=== PATIENT | male | born 1940 | race Caucasian/White ===

== ENCOUNTER 2023-01-15 11:03 | Inpatient (IN) | payer BC ==
[2023-01-15] VITALS (14 sets, daily range): BP systolic 91–133; BP diastolic 53–72; TEMP 97.9–98.6; O2SAT 91–98
[~2023-01-15] VITALS: Ht 167.6 cm; Wt 72.1 kg
[2023-01-15] MEDS ORDERED: IOHEXOL-350 100 ML VIAL IV ONE (11:13)
[2023-01-15] MEDS ORDERED: IV NS 0.9% 250 ML IV ONE (11:14)
[2023-01-15 11:26] LABS: CALCIUM, SERUM 8.2 mg/dL (8.5-10.1); CHLORIDE 105 mmol/L (98-107); CREATININE 0.8 mg/dL (0.6-1.3); GLUCOSE 86 mg/dL (74-106); POTASSIUM 4.5 mmol/L (3.5-5.1); SODIUM SERUM 148 mmol/L (136-145); UREA NITROGEN, BLOOD 29 mg/dL (7-18)
[2023-01-15 11:27] LABS: BASOPHILS # (AUTO) 0.1 K/uL (0.0-0.2); BASOPHILS % (AUTO) 1.8 % (0.0-2.0); EOSINOPHILS # (AUTO) 0.1 K/uL (0.0-0.7); EOSINOPHILS % (AUTO) 2.3 % (0.0-6.0); HEMATOCRIT 30 % (39-51); HEMOGLOBIN 8.2 g/dL (13.5-17.5); LYMPHOCYTES # (AUTO) 1.2 K/uL (0.8-4.8); LYMPHOCYTES % (AUTO) 22.2 % (20.0-44.0); MEAN CORPUSCULAR HEMOGLOBIN 24 PG (26.0-33.0); MEAN CORPUSCULAR HGB CONC 28 g/dl (31.0-36.0); MEAN CORPUSCULAR VOLUME 86 fL (80-96); MONOCYTES # (AUTO) 0.5 K/uL (0.1-1.30); MONOCYTES % (AUTO) 8.6 % (2.0-12.0); NEUTROPHILS # (AUTO) 3.7 K/uL (1.8-8.9); NEUTROPHILS % (AUTO) 65.1 % (43.0-81.0); PLATELET COUNT (AUTO) 179 K/uL (150-450); RED BLOOD CELL COUNT(AUTO) 3.48 MIL/uL (4.5-6.0); RED CELL DISTRIBUTION WIDTH 33.9 % (11.5-15.0); WHITE BLOOD COUNT (AUTO) 5.6 K/uL (4.3-11.0)
[2023-01-15 11:28] LABS: CARBON DIOXIDE 45 mmol/L (21-32)
[2023-01-15] MEDS ORDERED: IV NS 0.9% 1,000 ML BAG IV ONE (11:30)
[2023-01-15] MEDS ORDERED: ACETAMINOPHEN 650 MG/SUPP.RECT RC ONE ×2 (11:30→11:35)
[2023-01-15 11:31] LABS: INR 1.01 (0.91-1.10); PARTIAL THROMBOPLASTIN TIME 24.6 SEC (24.3-34.3); PROTHROMBIN TIME 10.6 SECS (9.2-11.1)
[2023-01-15 11:36] LABS: LACTIC ACID 0.6 mmol/L (0.4-2.0)
[2023-01-15] MEDS ORDERED: THIO300C PO (11:53)
[2023-01-15] MEDS ORDERED: IPRA3AMP22 IH (11:53)
[2023-01-15] MEDS ORDERED: MELA1TAB47 PO (11:53)
[2023-01-15] MEDS ORDERED: CYAN-51 PO (11:53)
[2023-01-15] MEDS ORDERED: FLUD0.1T PO (11:53)
[2023-01-15] MEDS ORDERED: GABA300C PO (11:53)
[2023-01-15] MEDS ORDERED: FERR325T23 PO (11:53)
[2023-01-15] MEDS ORDERED: LISI40TA13 PO (11:53)
[2023-01-15] MEDS ORDERED: CHOL400T58 PO (11:53)
[2023-01-15] MEDS ORDERED: ASPI-1169 PO (11:53)
[2023-01-15] MEDS ORDERED: NA P133E RC (11:53)
[2023-01-15] MEDS ORDERED: BACL5TAB PO (11:53)
[2023-01-15] MEDS ORDERED: LIDO30AD10 TD (11:53)
[2023-01-15] MEDS ORDERED: FURO-145 PO (11:53)
[2023-01-15] MEDS ORDERED: MAGN400O6 PO (11:53)
[2023-01-15] MEDS ORDERED: BISA10SU11 RC (11:53)
[2023-01-15] MEDS ORDERED: ACET-868 PO (11:53)
[2023-01-15] MEDS ORDERED: CALC-494 PO (11:53)
[2023-01-15] MEDS ORDERED: FINA5TAB4 PO (11:53)
[2023-01-15] MEDS ORDERED: MORP15TA PO (11:53)
[2023-01-15] MEDS ORDERED: NITR0.4T48 SL (11:54)
[2023-01-15] MEDS ORDERED: POLY17PO4 PO (11:54)
[2023-01-15] MEDS ORDERED: ONDA-97 PO (11:54)
[2023-01-15 12:08] LABS: ALBUMIN 2.7 g/dL (3.4-5.0); BILIRUBIN,DIRECT 0.2 mg/dL (0.0-0.2); BILIRUBIN,TOTAL 0.5 mg/dL (0.2-1.0); TOTAL PROTEIN, SERUM 6.3 g/dL (6.4-8.2)
[2023-01-15 12:26] LABS: APPEARANCE,URINE CLEAR (CLEAR); BILIRUBIN,URINE NEGATIVE (NEGATIVE); BLOOD, URINE TRACE-INTA Ery/uL (NEGATIVE); COLOR,URINE YELLOW (YELLOW); KETONES,URINE NEGATIVE (NEGATIVE); LEUKOCYTE ESTERASE ,URINE NEGATIVE (NEGATIVE); NITRITE, URINE NEGATIVE (NEGATIVE); PROTEIN,URINE 1+ mg/dl (NEGATIVE); UGLUCOSE NEGATIVE (NEGATIVE)
[2023-01-15] MEDS ORDERED: CEFTRIAXONE 1GM BAG (ER ONLY) 1 GM/50 ML PIGGYBACK IV ONE (12:30)
[2023-01-15] MEDS ORDERED: AZITHROMYCIN 500 MG in IV D5W 250 ML IV ONE (12:30)
[2023-01-15] MEDS ORDERED: CEFTRIAXONE 1GM BAG (ER ONLY) 50 ML IV ONE (12:44)
[2023-01-15 12:48] LABS: ADD URINE CULTURE NO; BACTERIA,URINE None seen /HPF (None Seen); MUCUS,URINE Few /LPF (None Seen); RBC,URINE 0-2 /HPF (0-2); WBC,URINE NONE SEEN /HPF (0-3)
[2023-01-15] MEDS ORDERED: Z GUARD REMEDY 4 OZ OINT TP PRN (13:00)
[2023-01-15 13:01] LABS: LYMPHOCYTES % (MANUAL) 26 % (16-48); MONOCYTES % (MANUAL) 6 % (0-11.0); NEUTROPHILS % (MANUAL) 68 (42-76); PLATELET ESTIMATE ADEQUATE
[2023-01-15 13:02] LABS: ANISOCYTOSIS 1+; HYPOCHROMASIA 2+; OVALOCYTES 1+; STOMATOCYTES 1+
[2023-01-15] MEDS ORDERED: IPRATROPIUM NEB FS 0.5 MG/2.5 ML AMPUL.NEB INH PRN (13:30)
[2023-01-15] MEDS ORDERED: ALBUTEROL FS 2.5 MG/0.5 ML VIAL.NEB NEB PRN (13:30)
[2023-01-15 14:21] LABS: ABG BASE EXCESS 16.9 mmol/L; ABG OXYGEN SATURATION 95.2 % (92.0-98.5); ABG PCO2 86.1 mmHg (35.0-45.0); ABG PH 7.339 (7.350-7.450); ABG PO2 75.8 mmHg (75.0-100.0); ABG TOTAL HEMOGLOBIN 8.8 G/dL (13.5-18.0); COHb 1.5 % (0.5-1.5); MetHb 0.4 % (0.0-1.5); O2Hb 93.4 % (94.0-97.0); SITE, ABG Right Radial
[2023-01-15] MEDS: IPRATROPIUM NEB FS 0.5 MG/2.5 ML AMPUL.NEB NEB SCH ×2 (14:35→19:55)
[2023-01-15] MEDS: ALBUTEROL HALF STRENGTH 1.25 MG/3 ML VIAL.NEB NEB SCH ×4 (14:35→19:55)
[2023-01-15] MEDS ORDERED: VANCOMYCIN 1.5 GM in IV D5W 500ml IV ONE (15:00)
[2023-01-15] MEDS: CEFEPIME 2 GM in IV D5W 100 ML IV SCH ×2 (15:49→22:02)
[2023-01-15] MEDS: FERROUS SULFATE (325 MG) 325 MG/TAB TABLET PO SCH ×2 (15:50→17:00)
[2023-01-15] MEDS: GABAPENTIN 300 MG CAPSULE PO SCH ×2 (15:50→17:00)
[2023-01-15] MEDS: methylPREDNISolone SOD SUCC 125 MG/2ML VIAL IV SCH ×2 (15:50→17:00)
[2023-01-15] MEDS: ENOXAPARIN SODIUM 40 MG/0.4 ML DISP.SYRIN SQ SCH (15:52)
[2023-01-15] MEDS: IV NS 0.9% 1,000 ML IV PRN (17:08)
[2023-01-15] MEDS: FLUDROCORTISONE 0.1 MG TABLET PO SCH (17:37)
[2023-01-15] MEDS: CHOLECALCIFEROL (VITAMIN D 3) 400 UNIT TABLET PO SCH (17:37)
[2023-01-15] MEDS: Z GUARD REMEDY 4 OZ OINT TP SCH (20:55)
[2023-01-16] VITALS (24 sets, daily range): BP systolic 100–146; BP diastolic 60–88; TEMP 97.9–98.4; O2SAT 92–100
[2023-01-16] MEDS: ALBUTEROL HALF STRENGTH 1.25 MG/3 ML VIAL.NEB NEB SCH ×7 (00:13→23:27)
[2023-01-16] MEDS: IPRATROPIUM NEB FS 0.5 MG/2.5 ML AMPUL.NEB NEB SCH ×7 (00:13→23:38)
[2023-01-16] MEDS: VANCOMYCIN HCL 0.75 GM in IV D5W 250 ML IV SCH ×2 (02:29→15:06)
[2023-01-16 04:51] LABS: ALANINE AMINOTRANSFERASE 23 U/L (12-78); ALKALINE PHOSPHATASE 75 U/L (46-116); ASPARTATE AMINOTRANSFERASE 26 U/L (15-37); BILIRUBIN,TOTAL 0.4 mg/dL (0.2-1.0); CALCIUM, SERUM 7.4 mg/dL (8.5-10.1); CARBON DIOXIDE 37 mmol/L (21-32); CHLORIDE 106 mmol/L (98-107); CREATININE 0.7 mg/dL (0.6-1.3); GLUCOSE 126 mg/dL (74-106); MAGNESIUM 2.2 mg/dL (1.8-2.4); PHOSPHORUS 3.1 mg/dL (2.5-4.9); POTASSIUM 4.1 mmol/L (3.5-5.1); SODIUM SERUM 145 mmol/L (136-145); TOTAL PROTEIN, SERUM 5.1 g/dL (6.4-8.2); UREA NITROGEN, BLOOD 27 mg/dL (7-18)
[2023-01-16 05:11] LABS: BASOPHILS # (AUTO) 0.1 K/uL (0.0-0.2); BASOPHILS % (AUTO) 1.4 % (0.0-2.0); EOSINOPHILS % (AUTO) 0.1 % (0.0-6.0); HEMATOCRIT 27 % (39-51); HEMOGLOBIN 7.7 g/dL (13.5-17.5); LYMPHOCYTES # (AUTO) 1.1 K/uL (0.8-4.8); LYMPHOCYTES % (AUTO) 22.2 % (20.0-44.0); MEAN CORPUSCULAR HEMOGLOBIN 24 PG (26.0-33.0); MEAN CORPUSCULAR HGB CONC 28 g/dl (31.0-36.0); MEAN CORPUSCULAR VOLUME 83 fL (80-96); MONOCYTES # (AUTO) 0.3 K/uL (0.1-1.30); MONOCYTES % (AUTO) 5.1 % (2.0-12.0); NEUTROPHILS # (AUTO) 3.6 K/uL (1.8-8.9); NEUTROPHILS % (AUTO) 71.2 % (43.0-81.0); PLATELET COUNT (AUTO) 192 K/uL (150-450); RED BLOOD CELL COUNT(AUTO) 3.27 MIL/uL (4.5-6.0); RED CELL DISTRIBUTION WIDTH 34.2 % (11.5-15.0)
[2023-01-16 05:34] LABS: ABG BASE EXCESS 16.5 mmol/L; ABG OXYGEN SATURATION 91.8 % (92.0-98.5); ABG PCO2 75.8 mmHg (35.0-45.0); ABG PH 7.379 (7.350-7.450); ABG PO2 59.5 mmHg (75.0-100.0); ABG TOTAL HEMOGLOBIN 7.9 G/dL (13.5-18.0); AaDO2 50.7 mmHg; MetHb 0.1 % (0.0-1.5); O2Hb 89.9 % (94.0-97.0); VENT MODE, BG 2LPM N/C
[2023-01-16] MEDS: CEFEPIME 2 GM in IV D5W 100 ML IV SCH ×3 (06:18→21:37)
[2023-01-16] MEDS: IV NS 0.9% 1,000 ML IV PRN (06:24)
[2023-01-16] MEDS: MORPHINE SULFATE INJ 2 MG/ML DISP.SYRIN IV PRN ×2 (08:15→21:45)
[2023-01-16] MEDS: methylPREDNISolone SOD SUCC 125 MG/2ML VIAL IV SCH ×2 (08:29→16:39)
[2023-01-16] MEDS: GABAPENTIN 300 MG CAPSULE PO SCH ×3 (08:30→16:39)
[2023-01-16] MEDS: CHOLECALCIFEROL (VITAMIN D 3) 400 UNIT TABLET PO SCH ×2 (08:30→16:39)
[2023-01-16] MEDS: ASPIRIN 81 MG TAB.CHEW PO SCH (08:30)
[2023-01-16] MEDS: FINASTERIDE (5 MG) 5 MG TABLET PO SCH (08:30)
[2023-01-16] MEDS: FLUDROCORTISONE 0.1 MG TABLET PO SCH ×2 (08:31→16:38)
[2023-01-16] MEDS: LISINOPRIL (20MG) 20 MG TABLET PO SCH (08:31)
[2023-01-16] MEDS: FERROUS SULFATE (325 MG) 325 MG/TAB TABLET PO SCH ×3 (08:31→16:39)
[2023-01-16] MEDS: Z GUARD REMEDY 4 OZ OINT TP SCH ×2 (08:32→21:08)
[2023-01-16] MEDS ORDERED: FUROSEMIDE 20 MG TABLET PO SCH (09:00)
[2023-01-16] MEDS: PROSOURCE / PROSTAT (PYXIS) 30 ML UDC PO SCH ×2 (12:02→16:39)
[2023-01-16] MEDS: ENOXAPARIN SODIUM 40 MG/0.4 ML DISP.SYRIN SQ SCH (12:31)
[2023-01-16] MEDS: FUROSEMIDE 20 MG/2 ML VIAL IV SCH (16:38)
[2023-01-17] VITALS (14 sets, daily range): BP systolic 120–148; BP diastolic 63–87; TEMP 97.6–98.3; O2SAT 94–100
[2023-01-17] MEDS: MORPHINE SULFATE INJ 2 MG/ML DISP.SYRIN IV PRN ×3 (02:41→22:27)
[2023-01-17] MEDS: VANCOMYCIN HCL 0.75 GM in IV D5W 250 ML IV SCH ×2 (02:49→15:06)
[2023-01-17] MEDS: IPRATROPIUM NEB FS 0.5 MG/2.5 ML AMPUL.NEB NEB SCH ×5 (03:30→20:08)
[2023-01-17] MEDS: ALBUTEROL HALF STRENGTH 1.25 MG/3 ML VIAL.NEB NEB SCH ×5 (03:30→20:08)
[2023-01-17] MEDS: CEFEPIME 2 GM in IV D5W 100 ML IV SCH ×3 (05:39→21:39)
[2023-01-17 08:29] LABS: ABG BASE EXCESS 14.7 mmol/L; ABG OXYGEN SATURATION 89.5 % (92.0-98.5); ABG PCO2 65.1 mmHg (35.0-45.0); ABG PH 7.419 (7.350-7.450); ABG PO2 53.6 mmHg (75.0-100.0); AaDO2 69.2 mmHg; COHb 2.1 % (0.5-1.5); MetHb 0.1 % (0.0-1.5); O2Hb 87.5 % (94.0-97.0); SITE, ABG Right Radial; VENT MODE, BG nasal cannula
[2023-01-17 08:51] LABS: ALANINE AMINOTRANSFERASE 27 U/L (12-78); ALBUMIN 2.5 g/dL (3.4-5.0); ALKALINE PHOSPHATASE 78 U/L (46-116); ASPARTATE AMINOTRANSFERASE 23 U/L (15-37); BILIRUBIN,TOTAL 0.4 mg/dL (0.2-1.0); CALCIUM, SERUM 8.1 mg/dL (8.5-10.1); CARBON DIOXIDE 37 mmol/L (21-32); CHLORIDE 104 mmol/L (98-107); GLUCOSE 110 mg/dL (74-106); POTASSIUM 4.1 mmol/L (3.5-5.1); SODIUM SERUM 144 mmol/L (136-145); TOTAL PROTEIN, SERUM 5.9 g/dL (6.4-8.2); UREA NITROGEN, BLOOD 33 mg/dL (7-18)
[2023-01-17 09:10] LABS: BASOPHILS # (AUTO) 0.1 K/uL (0.0-0.2); BASOPHILS % (AUTO) 0.8 % (0.0-2.0); EOSINOPHILS % (AUTO) 0.4 % (0.0-6.0); HEMATOCRIT 27 % (39-51); HEMOGLOBIN 7.7 g/dL (13.5-17.5); LYMPHOCYTES # (AUTO) 1.2 K/uL (0.8-4.8); LYMPHOCYTES % (AUTO) 19.8 % (20.0-44.0); MEAN CORPUSCULAR HEMOGLOBIN 23 PG (26.0-33.0); MEAN CORPUSCULAR HGB CONC 29 g/dl (31.0-36.0); MEAN CORPUSCULAR VOLUME 82 fL (80-96); MONOCYTES # (AUTO) 0.4 K/uL (0.1-1.30); MONOCYTES % (AUTO) 6.1 % (2.0-12.0); NEUTROPHILS # (AUTO) 4.6 K/uL (1.8-8.9); NEUTROPHILS % (AUTO) 72.9 % (43.0-81.0); PLATELET COUNT (AUTO) 209 K/uL (150-450); RED BLOOD CELL COUNT(AUTO) 3.27 MIL/uL (4.5-6.0); RED CELL DISTRIBUTION WIDTH 33.8 % (11.5-15.0); WHITE BLOOD COUNT (AUTO) 6.3 K/uL (4.3-11.0)
[2023-01-17] MEDS: FLUDROCORTISONE 0.1 MG TABLET PO SCH ×2 (10:13→17:05)
[2023-01-17] MEDS: PROSOURCE / PROSTAT (PYXIS) 30 ML UDC PO SCH ×3 (10:13→17:06)
[2023-01-17] MEDS: FUROSEMIDE 20 MG/2 ML VIAL IV SCH ×2 (10:13→17:05)
[2023-01-17] MEDS: CHOLECALCIFEROL (VITAMIN D 3) 400 UNIT TABLET PO SCH ×2 (10:14→17:05)
[2023-01-17] MEDS: GABAPENTIN 300 MG CAPSULE PO SCH ×3 (10:14→17:05)
[2023-01-17] MEDS: FERROUS SULFATE (325 MG) 325 MG/TAB TABLET PO SCH ×3 (10:14→17:05)
[2023-01-17] MEDS: ASPIRIN 81 MG TAB.CHEW PO SCH (10:14)
[2023-01-17] MEDS: FINASTERIDE (5 MG) 5 MG TABLET PO SCH (10:14)
[2023-01-17] MEDS: Z GUARD REMEDY 4 OZ OINT TP SCH ×2 (10:17→21:21)
[2023-01-17] MEDS: methylPREDNISolone SOD SUCC 125 MG/2ML VIAL IV SCH (10:17)
[2023-01-17] MEDS: LISINOPRIL (20MG) 20 MG TABLET PO SCH (10:18)
[2023-01-17] MEDS: ENOXAPARIN SODIUM 40 MG/0.4 ML DISP.SYRIN SQ SCH (13:15)
[2023-01-18] VITALS (14 sets, daily range): BP systolic 120–151; BP diastolic 65–106; TEMP 97.3–98.6; O2SAT 93–99
[2023-01-18] MEDS: IPRATROPIUM NEB FS 0.5 MG/2.5 ML AMPUL.NEB NEB SCH ×6 (00:48→20:26)
[2023-01-18] MEDS: ALBUTEROL HALF STRENGTH 1.25 MG/3 ML VIAL.NEB NEB SCH ×6 (00:48→20:26)
[2023-01-18] MEDS: VANCOMYCIN HCL 0.75 GM in IV D5W 250 ML IV SCH (03:28)
[2023-01-18] MEDS: CEFEPIME 2 GM in IV D5W 100 ML IV SCH (05:32)
[2023-01-18 06:43] LABS: BASOPHILS # (AUTO) 0.1 K/uL (0.0-0.2); BASOPHILS % (AUTO) 0.9 % (0.0-2.0); EOSINOPHILS % (AUTO) 0.5 % (0.0-6.0); HEMATOCRIT 28 % (39-51); HEMOGLOBIN 8.1 g/dL (13.5-17.5); LYMPHOCYTES # (AUTO) 1.6 K/uL (0.8-4.8); LYMPHOCYTES % (AUTO) 23.6 % (20.0-44.0); MEAN CORPUSCULAR HEMOGLOBIN 24 PG (26.0-33.0); MEAN CORPUSCULAR HGB CONC 29 g/dl (31.0-36.0); MEAN CORPUSCULAR VOLUME 82 fL (80-96); MONOCYTES # (AUTO) 0.4 K/uL (0.1-1.30); MONOCYTES % (AUTO) 6.3 % (2.0-12.0); NEUTROPHILS # (AUTO) 4.6 K/uL (1.8-8.9); NEUTROPHILS % (AUTO) 68.7 % (43.0-81.0); PLATELET COUNT (AUTO) 208 K/uL (150-450); RED BLOOD CELL COUNT(AUTO) 3.39 MIL/uL (4.5-6.0); RED CELL DISTRIBUTION WIDTH 33.9 % (11.5-15.0); WHITE BLOOD COUNT (AUTO) 6.7 K/uL (4.3-11.0)
[2023-01-18 07:14] LABS: CALCIUM, SERUM 7.8 mg/dL (8.5-10.1); CHLORIDE 101 mmol/L (98-107); CREATININE 0.9 mg/dL (0.6-1.3); GLUCOSE 86 mg/dL (74-106); POTASSIUM 3.4 mmol/L (3.5-5.1); SODIUM SERUM 144 mmol/L (136-145); UREA NITROGEN, BLOOD 34 mg/dL (7-18)
[2023-01-18 07:21] LABS: CARBON DIOXIDE 40 mmol/L (21-32)
[2023-01-18] MEDS: methylPREDNISolone SOD SUCC 40 MG/ML VIAL IV SCH (08:33)
[2023-01-18] MEDS: POLYETHYLENE GLYCOL 3350 17 GM POWD.PACK PO SCH ×2 (08:33→09:55)
[2023-01-18] MEDS: FERROUS SULFATE (325 MG) 325 MG/TAB TABLET PO SCH ×3 (08:33→17:38)
[2023-01-18] MEDS: LACTULOSE 10 G/15 ML UDC (PYXIS) PO SCH ×2 (08:33→17:38)
[2023-01-18] MEDS: CHOLECALCIFEROL (VITAMIN D 3) 400 UNIT TABLET PO SCH ×2 (08:34→17:38)
[2023-01-18] MEDS: FUROSEMIDE 20 MG/2 ML VIAL IV SCH ×3 (08:34→08:39)
[2023-01-18] MEDS: ASPIRIN 81 MG TAB.CHEW PO SCH (08:34)
[2023-01-18] MEDS: FINASTERIDE (5 MG) 5 MG TABLET PO SCH (08:34)
[2023-01-18] MEDS: GABAPENTIN 300 MG CAPSULE PO SCH ×3 (08:35→17:37)
[2023-01-18] MEDS: LISINOPRIL (20MG) 20 MG TABLET PO SCH (08:35)
[2023-01-18] MEDS: FLUDROCORTISONE 0.1 MG TABLET PO SCH ×2 (08:35→17:38)
[2023-01-18] MEDS: DOCUSATE SODIUM 100 MG CAPSULE PO SCH ×2 (08:40→17:38)
[2023-01-18] MEDS: PROSOURCE / PROSTAT (PYXIS) 30 ML UDC PO SCH ×3 (08:41→17:39)
[2023-01-18] MEDS: Z GUARD REMEDY 4 OZ OINT TP SCH ×2 (09:01→20:11)
[2023-01-18] MEDS: ONDANSETRON HCL/PF 4 MG/2 ML VIAL IVP PRN (09:57)
[2023-01-18] MEDS: ENOXAPARIN SODIUM 40 MG/0.4 ML DISP.SYRIN SQ SCH (12:09)
[2023-01-18] MEDS ORDERED: POTASSIUM CHLORIDE 20 MEQ TAB.PRT.SR PO ONE (12:30)
[2023-01-18] MEDS: MORPHINE SULFATE INJ 2 MG/ML DISP.SYRIN IV PRN ×2 (14:41→20:03)
[2023-01-18 17:24] LABS: HEMOGLOBIN 8.3 g/dL (13.5-17.5)
[2023-01-18] MEDS: FUROSEMIDE 20 MG TABLET PO SCH (17:39)
[2023-01-19] VITALS (14 sets, daily range): BP systolic 112–144; BP diastolic 61–80; TEMP 97.8–98.6; O2SAT 11–100
[2023-01-19] MEDS: IPRATROPIUM NEB FS 0.5 MG/2.5 ML AMPUL.NEB NEB SCH ×6 (00:53→20:14)
[2023-01-19] MEDS: ALBUTEROL HALF STRENGTH 1.25 MG/3 ML VIAL.NEB NEB SCH ×6 (00:53→20:14)
[2023-01-19] MEDS: ACETAMINOPHEN 325 MG TABLET PO PRN (00:58)
[2023-01-19 05:49] LABS: BASOPHILS # (AUTO) 0.1 K/uL (0.0-0.2); BASOPHILS % (AUTO) 0.8 % (0.0-2.0); EOSINOPHILS % (AUTO) 0.3 % (0.0-6.0); HEMATOCRIT 27 % (39-51); HEMOGLOBIN 7.8 g/dL (13.5-17.5); LYMPHOCYTES # (AUTO) 1.7 K/uL (0.8-4.8); LYMPHOCYTES % (AUTO) 26.3 % (20.0-44.0); MEAN CORPUSCULAR HEMOGLOBIN 24 PG (26.0-33.0); MEAN CORPUSCULAR HGB CONC 29 g/dl (31.0-36.0); MEAN CORPUSCULAR VOLUME 81 fL (80-96); MONOCYTES # (AUTO) 0.4 K/uL (0.1-1.30); MONOCYTES % (AUTO) 5.6 % (2.0-12.0); NEUTROPHILS # (AUTO) 4.2 K/uL (1.8-8.9); PLATELET COUNT (AUTO) 210 K/uL (150-450); RED BLOOD CELL COUNT(AUTO) 3.31 MIL/uL (4.5-6.0); RED CELL DISTRIBUTION WIDTH 33.7 % (11.5-15.0); WHITE BLOOD COUNT (AUTO) 6.3 K/uL (4.3-11.0)
[2023-01-19 06:03] LABS: CALCIUM, SERUM 8.1 mg/dL (8.5-10.1); CREATININE 0.9 mg/dL (0.6-1.3); POTASSIUM 3.6 mmol/L (3.5-5.1)
[2023-01-19] MEDS: DOCUSATE SODIUM 100 MG CAPSULE PO SCH ×2 (09:00→17:07)
[2023-01-19] MEDS: POLYETHYLENE GLYCOL 3350 17 GM POWD.PACK PO SCH (09:00)
[2023-01-19] MEDS: methylPREDNISolone SOD SUCC 40 MG/ML VIAL IV SCH (09:21)
[2023-01-19] MEDS: FERROUS SULFATE (325 MG) 325 MG/TAB TABLET PO SCH ×3 (09:22→17:07)
[2023-01-19] MEDS: FUROSEMIDE 20 MG TABLET PO SCH (09:22)
[2023-01-19] MEDS: FLUDROCORTISONE 0.1 MG TABLET PO SCH ×2 (09:22→17:08)
[2023-01-19] MEDS: FINASTERIDE (5 MG) 5 MG TABLET PO SCH (09:22)
[2023-01-19] MEDS: CHOLECALCIFEROL (VITAMIN D 3) 400 UNIT TABLET PO SCH ×2 (09:22→17:05)
[2023-01-19] MEDS: ASPIRIN 81 MG TAB.CHEW PO SCH (09:22)
[2023-01-19] MEDS: LISINOPRIL (20MG) 20 MG TABLET PO SCH (09:23)
[2023-01-19] MEDS: PROSOURCE / PROSTAT (PYXIS) 30 ML UDC PO SCH ×3 (09:24→17:00)
[2023-01-19] MEDS: Z GUARD REMEDY 4 OZ OINT TP SCH ×2 (09:25→20:29)
[2023-01-19] MEDS: GABAPENTIN 300 MG CAPSULE PO SCH ×3 (09:37→17:04)
[2023-01-19] MEDS: MORPHINE SULFATE INJ 2 MG/ML DISP.SYRIN IV PRN (10:05)
[2023-01-19] MEDS ORDERED: PRED50TA PO (10:46)
[2023-01-19] MEDS ORDERED: FURO20TA4 PO (10:46)
[2023-01-19] MEDS: ENOXAPARIN SODIUM 40 MG/0.4 ML DISP.SYRIN SQ SCH (14:34)
[2023-01-20] VITALS (15 sets, daily range): BP systolic 118–153; BP diastolic 64–75; TEMP 97.5–98.8; O2SAT 93–99
[2023-01-20] MEDS: ALBUTEROL HALF STRENGTH 1.25 MG/3 ML VIAL.NEB NEB SCH ×7 (00:07→23:40)
[2023-01-20] MEDS: IPRATROPIUM NEB FS 0.5 MG/2.5 ML AMPUL.NEB NEB SCH ×7 (00:07→23:40)
[2023-01-20] MEDS: MORPHINE SULFATE INJ 2 MG/ML DISP.SYRIN IV PRN ×2 (03:42→22:42)
[2023-01-20] MEDS ORDERED: IV NS 0.9% 500 ML IV ONE (04:57)
[2023-01-20 07:26] LABS: BASOPHILS # (AUTO) 0.1 K/uL (0.0-0.2); EOSINOPHILS % (AUTO) 0.7 % (0.0-6.0); HEMATOCRIT 27 % (39-51); HEMOGLOBIN 7.8 g/dL (13.5-17.5); LYMPHOCYTES # (AUTO) 1.7 K/uL (0.8-4.8); LYMPHOCYTES % (AUTO) 24.4 % (20.0-44.0); MEAN CORPUSCULAR HEMOGLOBIN 24 PG (26.0-33.0); MEAN CORPUSCULAR HGB CONC 29 g/dl (31.0-36.0); MEAN CORPUSCULAR VOLUME 83 fL (80-96); MONOCYTES # (AUTO) 0.4 K/uL (0.1-1.30); MONOCYTES % (AUTO) 5.4 % (2.0-12.0); NEUTROPHILS # (AUTO) 4.7 K/uL (1.8-8.9); NEUTROPHILS % (AUTO) 68.5 % (43.0-81.0); PLATELET COUNT (AUTO) 207 K/uL (150-450); RED BLOOD CELL COUNT(AUTO) 3.29 MIL/uL (4.5-6.0); RED CELL DISTRIBUTION WIDTH 34.3 % (11.5-15.0); WHITE BLOOD COUNT (AUTO) 6.8 K/uL (4.3-11.0)
[2023-01-20 07:45] LABS: CREATININE 0.9 mg/dL (0.6-1.3); POTASSIUM 3.5 mmol/L (3.5-5.1)
[2023-01-20] MEDS: methylPREDNISolone SOD SUCC 40 MG/ML VIAL IV SCH (09:26)
[2023-01-20] MEDS: FERROUS SULFATE (325 MG) 325 MG/TAB TABLET PO SCH ×3 (09:26→16:17)
[2023-01-20] MEDS: FINASTERIDE (5 MG) 5 MG TABLET PO SCH (09:27)
[2023-01-20] MEDS: POLYETHYLENE GLYCOL 3350 17 GM POWD.PACK PO SCH (09:27)
[2023-01-20] MEDS: GABAPENTIN 300 MG CAPSULE PO SCH ×3 (09:27→16:17)
[2023-01-20] MEDS: FLUDROCORTISONE 0.1 MG TABLET PO SCH ×2 (09:27→16:17)
[2023-01-20] MEDS: ASPIRIN 81 MG TAB.CHEW PO SCH (09:27)
[2023-01-20] MEDS: CHOLECALCIFEROL (VITAMIN D 3) 400 UNIT TABLET PO SCH ×2 (09:27→16:16)
[2023-01-20] MEDS: LISINOPRIL (20MG) 20 MG TABLET PO SCH (09:28)
[2023-01-20] MEDS: DOCUSATE SODIUM 100 MG CAPSULE PO SCH ×2 (09:29→16:17)
[2023-01-20] MEDS: PROSOURCE / PROSTAT (PYXIS) 30 ML UDC PO SCH ×3 (09:29→16:19)
[2023-01-20] MEDS: Z GUARD REMEDY 4 OZ OINT TP SCH ×2 (09:43→21:15)
[2023-01-20] MEDS: ENOXAPARIN SODIUM 40 MG/0.4 ML DISP.SYRIN SQ SCH (13:44)
[2023-01-21] VITALS (12 sets, daily range): BP systolic 121–143; BP diastolic 73–87; TEMP 97.6–99.1; O2SAT 95–100
[2023-01-21] MEDS: ALBUTEROL HALF STRENGTH 1.25 MG/3 ML VIAL.NEB NEB SCH ×5 (04:15→20:27)
[2023-01-21] MEDS: IPRATROPIUM NEB FS 0.5 MG/2.5 ML AMPUL.NEB NEB SCH ×5 (04:15→20:27)
[2023-01-21 06:50] LABS: BASOPHILS # (AUTO) 0.1 K/uL (0.0-0.2); EOSINOPHILS # (AUTO) 0.1 K/uL (0.0-0.7); EOSINOPHILS % (AUTO) 1.7 % (0.0-6.0); HEMATOCRIT 28 % (39-51); HEMOGLOBIN 8.2 g/dL (13.5-17.5); LYMPHOCYTES # (AUTO) 1.5 K/uL (0.8-4.8); LYMPHOCYTES % (AUTO) 22.9 % (20.0-44.0); MEAN CORPUSCULAR HEMOGLOBIN 24 PG (26.0-33.0); MEAN CORPUSCULAR HGB CONC 29 g/dl (31.0-36.0); MEAN CORPUSCULAR VOLUME 82 fL (80-96); MONOCYTES # (AUTO) 0.3 K/uL (0.1-1.30); MONOCYTES % (AUTO) 4.6 % (2.0-12.0); NEUTROPHILS # (AUTO) 4.7 K/uL (1.8-8.9); NEUTROPHILS % (AUTO) 69.8 % (43.0-81.0); PLATELET COUNT (AUTO) 204 K/uL (150-450); RED BLOOD CELL COUNT(AUTO) 3.45 MIL/uL (4.5-6.0); RED CELL DISTRIBUTION WIDTH 34.3 % (11.5-15.0); WHITE BLOOD COUNT (AUTO) 6.7 K/uL (4.3-11.0)
[2023-01-21 07:05] LABS: CALCIUM, SERUM 8.2 mg/dL (8.5-10.1); CHLORIDE 105 mmol/L (98-107); CREATININE 0.8 mg/dL (0.6-1.3); GLUCOSE 102 mg/dL (74-106); POTASSIUM 3.5 mmol/L (3.5-5.1); SODIUM SERUM 147 mmol/L (136-145); UREA NITROGEN, BLOOD 33 mg/dL (7-18)
[2023-01-21 07:08] LABS: CARBON DIOXIDE 42 mmol/L (21-32)
[2023-01-21] MEDS: FERROUS SULFATE (325 MG) 325 MG/TAB TABLET PO SCH ×3 (08:23→17:39)
[2023-01-21] MEDS: POLYETHYLENE GLYCOL 3350 17 GM POWD.PACK PO SCH (08:24)
[2023-01-21] MEDS: ASPIRIN 81 MG TAB.CHEW PO SCH (08:24)
[2023-01-21] MEDS: FINASTERIDE (5 MG) 5 MG TABLET PO SCH (08:25)
[2023-01-21] MEDS: DOCUSATE SODIUM 100 MG CAPSULE PO SCH ×2 (08:25→17:39)
[2023-01-21] MEDS: methylPREDNISolone SOD SUCC 40 MG/ML VIAL IV SCH (08:25)
[2023-01-21] MEDS: CHOLECALCIFEROL (VITAMIN D 3) 400 UNIT TABLET PO SCH ×2 (08:25→17:39)
[2023-01-21] MEDS: GABAPENTIN 300 MG CAPSULE PO SCH ×3 (08:25→17:39)
[2023-01-21] MEDS: FLUDROCORTISONE 0.1 MG TABLET PO SCH ×2 (08:25→17:39)
[2023-01-21] MEDS: MORPHINE SULFATE INJ 2 MG/ML DISP.SYRIN IV PRN ×2 (08:26→21:11)
[2023-01-21] MEDS: LISINOPRIL (20MG) 20 MG TABLET PO SCH (08:27)
[2023-01-21] MEDS: Z GUARD REMEDY 4 OZ OINT TP SCH ×2 (09:19→22:17)
[2023-01-21] MEDS: PROSOURCE / PROSTAT (PYXIS) 30 ML UDC PO SCH ×3 (09:19→17:39)
[2023-01-21] MEDS: ENOXAPARIN SODIUM 40 MG/0.4 ML DISP.SYRIN SQ SCH (13:05)
[2023-01-22] VITALS (12 sets, daily range): BP systolic 133–146; BP diastolic 64–89; TEMP 97.2–98.8; O2SAT 94–100
[2023-01-22] MEDS: ALBUTEROL HALF STRENGTH 1.25 MG/3 ML VIAL.NEB NEB SCH ×7 (00:17→23:10)
[2023-01-22] MEDS: IPRATROPIUM NEB FS 0.5 MG/2.5 ML AMPUL.NEB NEB SCH ×7 (00:17→23:10)
[2023-01-22] MEDS: MORPHINE SULFATE INJ 2 MG/ML DISP.SYRIN IV PRN (03:44)
[2023-01-22 05:46] LABS: BASOPHILS % (AUTO) 0.6 % (0.0-2.0); EOSINOPHILS # (AUTO) 0.1 K/uL (0.0-0.7); EOSINOPHILS % (AUTO) 1.6 % (0.0-6.0); HEMATOCRIT 28 % (39-51); LYMPHOCYTES # (AUTO) 1.6 K/uL (0.8-4.8); LYMPHOCYTES % (AUTO) 21.9 % (20.0-44.0); MEAN CORPUSCULAR HEMOGLOBIN 24 PG (26.0-33.0); MEAN CORPUSCULAR HGB CONC 29 g/dl (31.0-36.0); MEAN CORPUSCULAR VOLUME 82 fL (80-96); MONOCYTES # (AUTO) 0.4 K/uL (0.1-1.30); MONOCYTES % (AUTO) 5.1 % (2.0-12.0); NEUTROPHILS # (AUTO) 5.2 K/uL (1.8-8.9); NEUTROPHILS % (AUTO) 70.8 % (43.0-81.0); PLATELET COUNT (AUTO) 183 K/uL (150-450); RED BLOOD CELL COUNT(AUTO) 3.39 MIL/uL (4.5-6.0); RED CELL DISTRIBUTION WIDTH 34.1 % (11.5-15.0); WHITE BLOOD COUNT (AUTO) 7.3 K/uL (4.3-11.0)
[2023-01-22 05:57] LABS: CALCIUM, SERUM 8.1 mg/dL (8.5-10.1); CREATININE 0.9 mg/dL (0.6-1.3); POTASSIUM 4.1 mmol/L (3.5-5.1)
[2023-01-22] MEDS: POLYETHYLENE GLYCOL 3350 17 GM POWD.PACK PO SCH (08:44)
[2023-01-22] MEDS: CHOLECALCIFEROL (VITAMIN D 3) 400 UNIT TABLET PO SCH ×2 (08:46→16:10)
[2023-01-22] MEDS: ASPIRIN 81 MG TAB.CHEW PO SCH (08:46)
[2023-01-22] MEDS: DOCUSATE SODIUM 100 MG CAPSULE PO SCH ×2 (08:46→16:12)
[2023-01-22] MEDS: GABAPENTIN 300 MG CAPSULE PO SCH ×3 (08:46→16:10)
[2023-01-22] MEDS: methylPREDNISolone SOD SUCC 40 MG/ML VIAL IV SCH (08:46)
[2023-01-22] MEDS: LISINOPRIL (20MG) 20 MG TABLET PO SCH (08:47)
[2023-01-22] MEDS: FERROUS SULFATE (325 MG) 325 MG/TAB TABLET PO SCH ×3 (08:47→16:09)
[2023-01-22] MEDS: PROSOURCE / PROSTAT (PYXIS) 30 ML UDC PO SCH ×3 (08:48→16:09)
[2023-01-22] MEDS: FINASTERIDE (5 MG) 5 MG TABLET PO SCH (08:49)
[2023-01-22] MEDS: FLUDROCORTISONE 0.1 MG TABLET PO SCH ×2 (09:23→16:09)
[2023-01-22] MEDS: Z GUARD REMEDY 4 OZ OINT TP SCH ×2 (09:24→20:22)
[2023-01-23] VITALS (12 sets, daily range): BP systolic 115–148; BP diastolic 55–88; TEMP 97.4–98.4; O2SAT 92–100
[2023-01-23] MEDS: IPRATROPIUM NEB FS 0.5 MG/2.5 ML AMPUL.NEB NEB SCH ×6 (04:31→22:57)
[2023-01-23] MEDS: ALBUTEROL HALF STRENGTH 1.25 MG/3 ML VIAL.NEB NEB SCH ×6 (04:31→22:57)
[2023-01-23 05:44] LABS: BASOPHILS # (AUTO) 0.1 K/uL (0.0-0.2); BASOPHILS % (AUTO) 0.7 % (0.0-2.0); EOSINOPHILS # (AUTO) 0.2 K/uL (0.0-0.7); HEMATOCRIT 31 % (39-51); HEMOGLOBIN 8.6 g/dL (13.5-17.5); LYMPHOCYTES # (AUTO) 2.1 K/uL (0.8-4.8); LYMPHOCYTES % (AUTO) 25.4 % (20.0-44.0); MEAN CORPUSCULAR HEMOGLOBIN 24 PG (26.0-33.0); MEAN CORPUSCULAR HGB CONC 28 g/dl (31.0-36.0); MEAN CORPUSCULAR VOLUME 84 fL (80-96); MONOCYTES # (AUTO) 0.3 K/uL (0.1-1.30); MONOCYTES % (AUTO) 3.9 % (2.0-12.0); NEUTROPHILS # (AUTO) 5.7 K/uL (1.8-8.9); PLATELET COUNT (AUTO) 196 K/uL (150-450); RED BLOOD CELL COUNT(AUTO) 3.68 MIL/uL (4.5-6.0); RED CELL DISTRIBUTION WIDTH 33.7 % (11.5-15.0); WHITE BLOOD COUNT (AUTO) 8.4 K/uL (4.3-11.0)
[2023-01-23 06:03] LABS: CALCIUM, SERUM 8.1 mg/dL (8.5-10.1); CREATININE 0.7 mg/dL (0.6-1.3); MAGNESIUM 2.6 mg/dL (1.8-2.4); PHOSPHORUS 4.9 mg/dL (2.5-4.9); POTASSIUM 4.4 mmol/L (3.5-5.1)
[2023-01-23] MEDS: MORPHINE SULFATE INJ 2 MG/ML DISP.SYRIN IV PRN ×3 (06:54→20:17)
[2023-01-23] MEDS: POLYETHYLENE GLYCOL 3350 17 GM POWD.PACK PO SCH (08:46)
[2023-01-23] MEDS: PROSOURCE / PROSTAT (PYXIS) 30 ML UDC PO SCH ×3 (08:46→17:59)
[2023-01-23] MEDS: FINASTERIDE (5 MG) 5 MG TABLET PO SCH (08:47)
[2023-01-23] MEDS: CHOLECALCIFEROL (VITAMIN D 3) 400 UNIT TABLET PO SCH ×2 (08:47→17:59)
[2023-01-23] MEDS: ASPIRIN 81 MG TAB.CHEW PO SCH (08:47)
[2023-01-23] MEDS: FERROUS SULFATE (325 MG) 325 MG/TAB TABLET PO SCH ×3 (08:48→17:59)
[2023-01-23] MEDS: predniSONE 20 MG TABLET PO SCH (08:48)
[2023-01-23] MEDS: FLUDROCORTISONE 0.1 MG TABLET PO SCH ×2 (08:48→17:58)
[2023-01-23] MEDS: GABAPENTIN 300 MG CAPSULE PO SCH ×3 (08:48→17:59)
[2023-01-23] MEDS: LISINOPRIL (20MG) 20 MG TABLET PO SCH (08:48)
[2023-01-23] MEDS: DOCUSATE SODIUM 100 MG CAPSULE PO SCH ×2 (08:48→17:59)
[2023-01-23] MEDS: Z GUARD REMEDY 4 OZ OINT TP SCH ×2 (08:49→21:23)
[2023-01-24] VITALS (14 sets, daily range): BP systolic 132–153; BP diastolic 63–83; TEMP 97.7–98.8; O2SAT 94–100
[2023-01-24] MEDS: IPRATROPIUM NEB FS 0.5 MG/2.5 ML AMPUL.NEB NEB SCH ×6 (02:40→23:45)
[2023-01-24] MEDS: ALBUTEROL HALF STRENGTH 1.25 MG/3 ML VIAL.NEB NEB SCH ×6 (02:40→23:45)
[2023-01-24 07:07] LABS: BASOPHILS # (AUTO) 0.1 K/uL (0.0-0.2); BASOPHILS % (AUTO) 1.3 % (0.0-2.0); EOSINOPHILS # (AUTO) 0.3 K/uL (0.0-0.7); EOSINOPHILS % (AUTO) 4.4 % (0.0-6.0); HEMATOCRIT 28 % (39-51); LYMPHOCYTES # (AUTO) 1.4 K/uL (0.8-4.8); LYMPHOCYTES % (AUTO) 18.9 % (20.0-44.0); MEAN CORPUSCULAR HEMOGLOBIN 24 PG (26.0-33.0); MEAN CORPUSCULAR HGB CONC 29 g/dl (31.0-36.0); MEAN CORPUSCULAR VOLUME 83 fL (80-96); MONOCYTES # (AUTO) 0.4 K/uL (0.1-1.30); MONOCYTES % (AUTO) 4.9 % (2.0-12.0); NEUTROPHILS # (AUTO) 5.1 K/uL (1.8-8.9); NEUTROPHILS % (AUTO) 70.5 % (43.0-81.0); PLATELET COUNT (AUTO) 187 K/uL (150-450); RED BLOOD CELL COUNT(AUTO) 3.38 MIL/uL (4.5-6.0); RED CELL DISTRIBUTION WIDTH 34.5 % (11.5-15.0); WHITE BLOOD COUNT (AUTO) 7.2 K/uL (4.3-11.0)
[2023-01-24 07:09] LABS: CREATININE 0.6 mg/dL (0.6-1.3); MAGNESIUM 2.4 mg/dL (1.8-2.4); PHOSPHORUS 4.4 mg/dL (2.5-4.9); POTASSIUM 4.2 mmol/L (3.5-5.1)
[2023-01-24] MEDS: Z GUARD REMEDY 4 OZ OINT TP SCH ×2 (08:19→20:40)
[2023-01-24] MEDS: FINASTERIDE (5 MG) 5 MG TABLET PO SCH (08:30)
[2023-01-24] MEDS: FERROUS SULFATE (325 MG) 325 MG/TAB TABLET PO SCH ×3 (08:31→16:12)
[2023-01-24] MEDS: FLUDROCORTISONE 0.1 MG TABLET PO SCH ×2 (08:31→16:12)
[2023-01-24] MEDS: POLYETHYLENE GLYCOL 3350 17 GM POWD.PACK PO SCH (08:31)
[2023-01-24] MEDS: predniSONE 20 MG TABLET PO SCH (08:31)
[2023-01-24] MEDS: ASPIRIN 81 MG TAB.CHEW PO SCH (08:31)
[2023-01-24] MEDS: CHOLECALCIFEROL (VITAMIN D 3) 400 UNIT TABLET PO SCH ×2 (08:31→16:12)
[2023-01-24] MEDS: DOCUSATE SODIUM 100 MG CAPSULE PO SCH ×2 (08:31→16:12)
[2023-01-24] MEDS: GABAPENTIN 300 MG CAPSULE PO SCH ×3 (08:31→16:12)
[2023-01-24] MEDS: LISINOPRIL (20MG) 20 MG TABLET PO SCH (08:32)
[2023-01-24] MEDS: PROSOURCE / PROSTAT (PYXIS) 30 ML UDC PO SCH ×3 (08:32→16:12)
[2023-01-24] MEDS: MORPHINE SULFATE INJ 2 MG/ML DISP.SYRIN IV PRN ×2 (10:12→21:37)
[2023-01-24 17:15] LABS: APPEARANCE,URINE SLIGHTLY CLOUDY (CLEAR); BILIRUBIN,URINE 1+ (NEGATIVE); BLOOD, URINE 3+ Ery/uL (NEGATIVE); COLOR,URINE RED (YELLOW); KETONES,URINE NEGATIVE (NEGATIVE); LEUKOCYTE ESTERASE ,URINE NEGATIVE (NEGATIVE); NITRITE, URINE NEGATIVE (NEGATIVE); PROTEIN,URINE 2+ mg/dl (NEGATIVE); UGLUCOSE NEGATIVE (NEGATIVE); UROBILINOGEN,URINE >=8.0 EU/dL (0.2)
[2023-01-24 17:28] LABS: RBC,URINE 51-80 /HPF (0-2)
[2023-01-24 17:29] LABS: ADD URINE CULTURE NO; BACTERIA,URINE None seen /HPF (None Seen); CALCIUM OXALATE CRYSTALS,UR Few /HPF (None Seen); SQUAMOUS EPITHELIAL CELL,UR None Seen /HPF (None Seen)
[2023-01-24 17:30] LABS: MUCUS,URINE Few /LPF (None Seen)
[2023-01-25] VITALS (14 sets, daily range): BP systolic 124–149; BP diastolic 72–86; TEMP 97.5–98.6; O2SAT 92–98
[2023-01-25] MEDS: ONDANSETRON HCL/PF 4 MG/2 ML VIAL IVP PRN (01:05)
[2023-01-25] MEDS: ALBUTEROL HALF STRENGTH 1.25 MG/3 ML VIAL.NEB NEB SCH ×5 (03:31→20:42)
[2023-01-25] MEDS: IPRATROPIUM NEB FS 0.5 MG/2.5 ML AMPUL.NEB NEB SCH ×5 (03:31→20:43)
[2023-01-25 07:39] LABS: BASOPHILS # (AUTO) 0.1 K/uL (0.0-0.2); BASOPHILS % (AUTO) 0.8 % (0.0-2.0); EOSINOPHILS # (AUTO) 0.3 K/uL (0.0-0.7); HEMATOCRIT 29 % (39-51); HEMOGLOBIN 8.3 g/dL (13.5-17.5); LYMPHOCYTES # (AUTO) 1.6 K/uL (0.8-4.8); LYMPHOCYTES % (AUTO) 20.5 % (20.0-44.0); MEAN CORPUSCULAR HEMOGLOBIN 24 PG (26.0-33.0); MEAN CORPUSCULAR HGB CONC 28 g/dl (31.0-36.0); MEAN CORPUSCULAR VOLUME 84 fL (80-96); MONOCYTES # (AUTO) 0.3 K/uL (0.1-1.30); MONOCYTES % (AUTO) 4.4 % (2.0-12.0); NEUTROPHILS # (AUTO) 5.5 K/uL (1.8-8.9); NEUTROPHILS % (AUTO) 70.3 % (43.0-81.0); PLATELET COUNT (AUTO) 176 K/uL (150-450); RED CELL DISTRIBUTION WIDTH 34.6 % (11.5-15.0); WHITE BLOOD COUNT (AUTO) 7.9 K/uL (4.3-11.0)
[2023-01-25 07:54] LABS: CALCIUM, SERUM 7.9 mg/dL (8.5-10.1); CREATININE 0.7 mg/dL (0.6-1.3); MAGNESIUM 2.4 mg/dL (1.8-2.4); PHOSPHORUS 4.1 mg/dL (2.5-4.9); POTASSIUM 4.3 mmol/L (3.5-5.1)
[2023-01-25] MEDS: ASPIRIN 81 MG TAB.CHEW PO SCH (08:42)
[2023-01-25] MEDS: FLUDROCORTISONE 0.1 MG TABLET PO SCH ×2 (08:42→17:06)
[2023-01-25] MEDS: LISINOPRIL (20MG) 20 MG TABLET PO SCH (08:42)
[2023-01-25] MEDS: FINASTERIDE (5 MG) 5 MG TABLET PO SCH (08:42)
[2023-01-25] MEDS: FERROUS SULFATE (325 MG) 325 MG/TAB TABLET PO SCH ×3 (08:43→17:06)
[2023-01-25] MEDS: CHOLECALCIFEROL (VITAMIN D 3) 400 UNIT TABLET PO SCH ×2 (08:43→17:06)
[2023-01-25] MEDS: GABAPENTIN 300 MG CAPSULE PO SCH ×3 (08:43→17:06)
[2023-01-25] MEDS: DOCUSATE SODIUM 100 MG CAPSULE PO SCH ×2 (08:44→17:06)
[2023-01-25] MEDS: POLYETHYLENE GLYCOL 3350 17 GM POWD.PACK PO SCH (08:47)
[2023-01-25] MEDS: predniSONE 20 MG TABLET PO SCH (08:47)
[2023-01-25] MEDS: PROSOURCE / PROSTAT (PYXIS) 30 ML UDC PO SCH ×3 (08:48→17:06)
[2023-01-25] MEDS: Z GUARD REMEDY 4 OZ OINT TP SCH ×2 (08:49→21:05)
[2023-01-25] MEDS: MORPHINE SULFATE INJ 2 MG/ML DISP.SYRIN IV PRN (22:52)
[2023-01-26] VITALS (18 sets, daily range): BP systolic 112–134; BP diastolic 53–81; TEMP 97.3–98.6; O2SAT 92–99
[2023-01-26] MEDS: ALBUTEROL HALF STRENGTH 1.25 MG/3 ML VIAL.NEB NEB SCH ×7 (00:03→23:14)
[2023-01-26] MEDS: IPRATROPIUM NEB FS 0.5 MG/2.5 ML AMPUL.NEB NEB SCH ×7 (00:03→23:14)
[2023-01-26] MEDS ORDERED: MAG HYDROX/AL HYDROX/SIMETH 30 ML UDC PO PRN (03:30)
[2023-01-26 06:04] LABS: BASOPHILS # (AUTO) 0.1 K/uL (0.0-0.2); BASOPHILS % (AUTO) 1.1 % (0.0-2.0); EOSINOPHILS # (AUTO) 0.2 K/uL (0.0-0.7); EOSINOPHILS % (AUTO) 2.2 % (0.0-6.0); HEMATOCRIT 29 % (39-51); LYMPHOCYTES # (AUTO) 1.4 K/uL (0.8-4.8); LYMPHOCYTES % (AUTO) 12.5 % (20.0-44.0); MEAN CORPUSCULAR HEMOGLOBIN 23 PG (26.0-33.0); MEAN CORPUSCULAR HGB CONC 28 g/dl (31.0-36.0); MEAN CORPUSCULAR VOLUME 83 fL (80-96); MONOCYTES # (AUTO) 0.4 K/uL (0.1-1.30); NEUTROPHILS # (AUTO) 8.9 K/uL (1.8-8.9); NEUTROPHILS % (AUTO) 80.2 % (43.0-81.0); PLATELET COUNT (AUTO) 182 K/uL (150-450); RED BLOOD CELL COUNT(AUTO) 3.44 MIL/uL (4.5-6.0); RED CELL DISTRIBUTION WIDTH 34.3 % (11.5-15.0)
[2023-01-26 06:15] LABS: ALANINE AMINOTRANSFERASE 104 U/L (12-78); ALBUMIN 2.4 g/dL (3.4-5.0); ALKALINE PHOSPHATASE 137 U/L (46-116); ASPARTATE AMINOTRANSFERASE 42 U/L (15-37); BILIRUBIN,TOTAL 0.5 mg/dL (0.2-1.0); CHLORIDE 107 mmol/L (98-107); CREATININE 0.7 mg/dL (0.6-1.3); GLUCOSE 82 mg/dL (74-106); MAGNESIUM 2.3 mg/dL (1.8-2.4); POTASSIUM 3.9 mmol/L (3.5-5.1); SODIUM SERUM 146 mmol/L (136-145); TOTAL PROTEIN, SERUM 5.6 g/dL (6.4-8.2); UREA NITROGEN, BLOOD 30 mg/dL (7-18)
[2023-01-26 06:27] LABS: CARBON DIOXIDE 42 mmol/L (21-32)
[2023-01-26] MEDS: GABAPENTIN 300 MG CAPSULE PO SCH ×3 (09:17→18:09)
[2023-01-26] MEDS: FINASTERIDE (5 MG) 5 MG TABLET PO SCH (09:17)
[2023-01-26] MEDS: predniSONE 20 MG TABLET PO SCH (09:17)
[2023-01-26] MEDS: FERROUS SULFATE (325 MG) 325 MG/TAB TABLET PO SCH ×3 (09:17→18:09)
[2023-01-26] MEDS: FLUDROCORTISONE 0.1 MG TABLET PO SCH ×2 (09:17→18:09)
[2023-01-26] MEDS: DOCUSATE SODIUM 100 MG CAPSULE PO SCH ×2 (09:17→18:09)
[2023-01-26] MEDS: ASPIRIN 81 MG TAB.CHEW PO SCH (09:17)
[2023-01-26] MEDS: CHOLECALCIFEROL (VITAMIN D 3) 400 UNIT TABLET PO SCH ×2 (09:18→18:10)
[2023-01-26] MEDS: LISINOPRIL (20MG) 20 MG TABLET PO SCH (09:18)
[2023-01-26] MEDS: PROSOURCE / PROSTAT (PYXIS) 30 ML UDC PO SCH ×3 (09:19→18:09)
[2023-01-26] MEDS: POLYETHYLENE GLYCOL 3350 17 GM POWD.PACK PO SCH (09:19)
[2023-01-26] MEDS: Z GUARD REMEDY 4 OZ OINT TP SCH ×2 (09:23→21:45)
[2023-01-26] MEDS: MORPHINE SULFATE INJ 2 MG/ML DISP.SYRIN IV PRN (21:00)
[2023-01-27] VITALS (10 sets, daily range): BP systolic 127–135; BP diastolic 65–88; TEMP 97.7–99; O2SAT 92–100
[2023-01-27] MEDS: GUAIFENESIN/D-METHORPHAN HB 5 ML UDC PO PRN ×2 (01:14→12:32)
[2023-01-27] MEDS: IPRATROPIUM NEB FS 0.5 MG/2.5 ML AMPUL.NEB NEB SCH ×5 (05:39→20:10)
[2023-01-27] MEDS: ALBUTEROL HALF STRENGTH 1.25 MG/3 ML VIAL.NEB NEB SCH ×5 (05:39→20:10)
[2023-01-27 06:09] LABS: BASOPHILS # (AUTO) 0.1 K/uL (0.0-0.2); BASOPHILS % (AUTO) 0.9 % (0.0-2.0); EOSINOPHILS # (AUTO) 0.1 K/uL (0.0-0.7); EOSINOPHILS % (AUTO) 1.5 % (0.0-6.0); HEMATOCRIT 29 % (39-51); HEMOGLOBIN 8.3 g/dL (13.5-17.5); LYMPHOCYTES # (AUTO) 1.5 K/uL (0.8-4.8); LYMPHOCYTES % (AUTO) 17.8 % (20.0-44.0); MEAN CORPUSCULAR HEMOGLOBIN 24 PG (26.0-33.0); MEAN CORPUSCULAR HGB CONC 29 g/dl (31.0-36.0); MEAN CORPUSCULAR VOLUME 83 fL (80-96); MONOCYTES # (AUTO) 0.4 K/uL (0.1-1.30); MONOCYTES % (AUTO) 4.5 % (2.0-12.0); NEUTROPHILS # (AUTO) 6.5 K/uL (1.8-8.9); NEUTROPHILS % (AUTO) 75.3 % (43.0-81.0); PLATELET COUNT (AUTO) 161 K/uL (150-450); RED BLOOD CELL COUNT(AUTO) 3.44 MIL/uL (4.5-6.0); RED CELL DISTRIBUTION WIDTH 34.1 % (11.5-15.0); WHITE BLOOD COUNT (AUTO) 8.7 K/uL (4.3-11.0)
[2023-01-27 06:45] LABS: CREATININE 0.6 mg/dL (0.6-1.3); MAGNESIUM 2.5 mg/dL (1.8-2.4); POTASSIUM 4.1 mmol/L (3.5-5.1)
[2023-01-27] MEDS: FINASTERIDE (5 MG) 5 MG TABLET PO SCH (08:31)
[2023-01-27] MEDS: CHOLECALCIFEROL (VITAMIN D 3) 400 UNIT TABLET PO SCH ×2 (08:31→16:08)
[2023-01-27] MEDS: ASPIRIN 81 MG TAB.CHEW PO SCH (08:31)
[2023-01-27] MEDS: POLYETHYLENE GLYCOL 3350 17 GM POWD.PACK PO SCH (08:31)
[2023-01-27] MEDS: predniSONE 20 MG TABLET PO SCH (08:31)
[2023-01-27] MEDS: FERROUS SULFATE (325 MG) 325 MG/TAB TABLET PO SCH ×3 (08:31→16:08)
[2023-01-27] MEDS: FLUDROCORTISONE 0.1 MG TABLET PO SCH ×2 (08:31→16:08)
[2023-01-27] MEDS: DOCUSATE SODIUM 100 MG CAPSULE PO SCH ×2 (08:32→16:08)
[2023-01-27] MEDS: GABAPENTIN 300 MG CAPSULE PO SCH ×3 (08:32→16:08)
[2023-01-27] MEDS: PROSOURCE / PROSTAT (PYXIS) 30 ML UDC PO SCH ×3 (08:33→16:09)
[2023-01-27] MEDS: Z GUARD REMEDY 4 OZ OINT TP SCH ×2 (08:33→21:37)
[2023-01-27] MEDS: LISINOPRIL (20MG) 20 MG TABLET PO SCH (08:35)
[2023-01-28] VITALS (13 sets, daily range): BP systolic 110–137; BP diastolic 63–75; TEMP 98.2–98.8; O2SAT 94–99
[2023-01-28] MEDS: ALBUTEROL HALF STRENGTH 1.25 MG/3 ML VIAL.NEB NEB SCH ×6 (00:04→20:10)
[2023-01-28] MEDS: IPRATROPIUM NEB FS 0.5 MG/2.5 ML AMPUL.NEB NEB SCH ×6 (00:04→20:10)
[2023-01-28] MEDS: MORPHINE SULFATE INJ 2 MG/ML DISP.SYRIN IV PRN ×2 (00:07→23:25)
[2023-01-28] MEDS: GUAIFENESIN/D-METHORPHAN HB 5 ML UDC PO PRN (02:31)
[2023-01-28 07:46] LABS: BASOPHILS # (AUTO) 0.1 K/uL (0.0-0.2); BASOPHILS % (AUTO) 0.6 % (0.0-2.0); EOSINOPHILS # (AUTO) 0.2 K/uL (0.0-0.7); EOSINOPHILS % (AUTO) 2.2 % (0.0-6.0); HEMATOCRIT 29 % (39-51); LYMPHOCYTES # (AUTO) 1.5 K/uL (0.8-4.8); LYMPHOCYTES % (AUTO) 17.5 % (20.0-44.0); MEAN CORPUSCULAR HEMOGLOBIN 24 PG (26.0-33.0); MEAN CORPUSCULAR HGB CONC 28 g/dl (31.0-36.0); MEAN CORPUSCULAR VOLUME 86 fL (80-96); MONOCYTES # (AUTO) 0.4 K/uL (0.1-1.30); MONOCYTES % (AUTO) 4.4 % (2.0-12.0); NEUTROPHILS # (AUTO) 6.3 K/uL (1.8-8.9); NEUTROPHILS % (AUTO) 75.3 % (43.0-81.0); PLATELET COUNT (AUTO) 152 K/uL (150-450); RED BLOOD CELL COUNT(AUTO) 3.36 MIL/uL (4.5-6.0); RED CELL DISTRIBUTION WIDTH 34.2 % (11.5-15.0); WHITE BLOOD COUNT (AUTO) 8.3 K/uL (4.3-11.0)
[2023-01-28 08:07] LABS: CALCIUM, SERUM 8.3 mg/dL (8.5-10.1); CREATININE 0.6 mg/dL (0.6-1.3); MAGNESIUM 2.4 mg/dL (1.8-2.4); PHOSPHORUS 4.2 mg/dL (2.5-4.9); POTASSIUM 4.1 mmol/L (3.5-5.1)
[2023-01-28] MEDS: ASPIRIN 81 MG TAB.CHEW PO SCH (09:08)
[2023-01-28] MEDS: GABAPENTIN 300 MG CAPSULE PO SCH ×3 (09:09→16:27)
[2023-01-28] MEDS: FERROUS SULFATE (325 MG) 325 MG/TAB TABLET PO SCH ×3 (09:09→16:27)
[2023-01-28] MEDS: DOCUSATE SODIUM 100 MG CAPSULE PO SCH ×2 (09:11→16:27)
[2023-01-28] MEDS: FINASTERIDE (5 MG) 5 MG TABLET PO SCH (09:11)
[2023-01-28] MEDS: LISINOPRIL (20MG) 20 MG TABLET PO SCH (09:11)
[2023-01-28] MEDS: FLUDROCORTISONE 0.1 MG TABLET PO SCH ×2 (09:11→16:27)
[2023-01-28] MEDS: predniSONE 20 MG TABLET PO SCH (09:11)
[2023-01-28] MEDS: CHOLECALCIFEROL (VITAMIN D 3) 400 UNIT TABLET PO SCH ×2 (09:12→16:27)
[2023-01-28] MEDS: POLYETHYLENE GLYCOL 3350 17 GM POWD.PACK PO SCH (09:12)
[2023-01-28] MEDS: Z GUARD REMEDY 4 OZ OINT TP SCH ×2 (09:12→21:26)
[2023-01-28] MEDS: PROSOURCE / PROSTAT (PYXIS) 30 ML UDC PO SCH ×3 (09:13→16:27)
[2023-01-28 11:21] LABS: ABG BASE EXCESS 13.8 mmol/L; ABG OXYGEN SATURATION 95.2 % (92.0-98.5); ABG PCO2 84.3 mmHg (35.0-45.0); ABG PH 7.317 (7.350-7.450); ABG PO2 80.6 mmHg (75.0-100.0); ABG TOTAL HEMOGLOBIN 8.6 G/dL (13.5-18.0); AaDO2 19.6 mmHg; COHb 1.5 % (0.5-1.5); MetHb 0.4 % (0.0-1.5); O2Hb 93.4 % (94.0-97.0); SITE, ABG Right Radial; VENT MODE, BG 2L NC
[2023-01-28] MEDS ORDERED: IV D5W 1,000 ML IV ONE (14:30)
[2023-01-29] VITALS (18 sets, daily range): BP systolic 110–126; BP diastolic 63–69; TEMP 97.5–98.6; O2SAT 91–99
[2023-01-29] MEDS: ALBUTEROL HALF STRENGTH 1.25 MG/3 ML VIAL.NEB NEB SCH ×7 (00:20→23:35)
[2023-01-29] MEDS: IPRATROPIUM NEB FS 0.5 MG/2.5 ML AMPUL.NEB NEB SCH ×7 (00:20→23:35)
[2023-01-29 05:45] LABS: BASOPHILS # (AUTO) 0.1 K/uL (0.0-0.2); BASOPHILS % (AUTO) 1.1 % (0.0-2.0); EOSINOPHILS # (AUTO) 0.2 K/uL (0.0-0.7); EOSINOPHILS % (AUTO) 2.8 % (0.0-6.0); HEMATOCRIT 30 % (39-51); HEMOGLOBIN 8.3 g/dL (13.5-17.5); LYMPHOCYTES % (AUTO) 14.5 % (20.0-44.0); MEAN CORPUSCULAR HEMOGLOBIN 24 PG (26.0-33.0); MEAN CORPUSCULAR HGB CONC 28 g/dl (31.0-36.0); MEAN CORPUSCULAR VOLUME 86 fL (80-96); MONOCYTES # (AUTO) 0.3 K/uL (0.1-1.30); MONOCYTES % (AUTO) 4.6 % (2.0-12.0); NEUTROPHILS # (AUTO) 5.2 K/uL (1.8-8.9); PLATELET COUNT (AUTO) 139 K/uL (150-450); RED BLOOD CELL COUNT(AUTO) 3.45 MIL/uL (4.5-6.0); RED CELL DISTRIBUTION WIDTH 33.9 % (11.5-15.0); WHITE BLOOD COUNT (AUTO) 6.8 K/uL (4.3-11.0)
[2023-01-29 06:03] LABS: CREATININE 0.7 mg/dL (0.6-1.3); MAGNESIUM 2.2 mg/dL (1.8-2.4); PHOSPHORUS 4.2 mg/dL (2.5-4.9); POTASSIUM 4.1 mmol/L (3.5-5.1)
[2023-01-29] MEDS: ASPIRIN 81 MG TAB.CHEW PO SCH (08:59)
[2023-01-29] MEDS: POLYETHYLENE GLYCOL 3350 17 GM POWD.PACK PO SCH (08:59)
[2023-01-29] MEDS: FERROUS SULFATE (325 MG) 325 MG/TAB TABLET PO SCH ×3 (08:59→17:27)
[2023-01-29] MEDS: CHOLECALCIFEROL (VITAMIN D 3) 400 UNIT TABLET PO SCH ×2 (09:00→17:30)
[2023-01-29] MEDS: FINASTERIDE (5 MG) 5 MG TABLET PO SCH (09:01)
[2023-01-29] MEDS: GABAPENTIN 300 MG CAPSULE PO SCH ×3 (09:01→17:30)
[2023-01-29] MEDS: FLUDROCORTISONE 0.1 MG TABLET PO SCH ×2 (09:02→17:27)
[2023-01-29] MEDS: DOCUSATE SODIUM 100 MG CAPSULE PO SCH ×2 (09:02→17:27)
[2023-01-29] MEDS: predniSONE 20 MG TABLET PO SCH (09:02)
[2023-01-29] MEDS: LISINOPRIL (20MG) 20 MG TABLET PO SCH (09:03)
[2023-01-29] MEDS: PROSOURCE / PROSTAT (PYXIS) 30 ML UDC PO SCH ×3 (09:05→17:30)
[2023-01-29] MEDS: Z GUARD REMEDY 4 OZ OINT TP SCH ×2 (09:05→20:33)
[2023-01-29] MEDS: GUAIFENESIN/D-METHORPHAN HB 5 ML UDC PO PRN ×2 (10:01→21:51)
[2023-01-29 12:35] LABS: ABG BASE EXCESS 12.3 mmol/L; ABG OXYGEN SATURATION 63.5 % (92.0-98.5); ABG PCO2 77.9 mmHg (35.0-45.0); ABG PH 7.332 (7.350-7.450); ABG PO2 32.1 mmHg (75.0-100.0); ABG TOTAL HEMOGLOBIN 9.3 G/dL (13.5-18.0); AaDO2 75.6 mmHg; COHb 2.3 % (0.5-1.5); MetHb 0.1 % (0.0-1.5); SITE, ABG Left Radial; VENT MODE, BG 2L O2
[2023-01-29 13:37] LABS: ABG BASE EXCESS 11.2 mmol/L; ABG OXYGEN SATURATION 91.3 % (92.0-98.5); ABG PCO2 73.8 mmHg (35.0-45.0); ABG PO2 62.2 mmHg (75.0-100.0); ABG TOTAL HEMOGLOBIN 9.4 G/dL (13.5-18.0); AaDO2 50.4 mmHg; COHb 1.7 % (0.5-1.5); MetHb 0.3 % (0.0-1.5); O2Hb 89.5 % (94.0-97.0); SITE, ABG Right Radial; VENT MODE, BG 2L O2
[2023-01-29] MEDS: MORPHINE SULFATE INJ 2 MG/ML DISP.SYRIN IV PRN (21:25)
[2023-01-30] VITALS (9 sets, daily range): BP systolic 101–115; BP diastolic 55–67; TEMP 97.9–98.4; O2SAT 89–99
[2023-01-30] MEDS: ACETAMINOPHEN 325 MG TABLET PO PRN (01:35)
[2023-01-30] MEDS: GUAIFENESIN/D-METHORPHAN HB 5 ML UDC PO PRN (01:35)
[2023-01-30] MEDS: IPRATROPIUM NEB FS 0.5 MG/2.5 ML AMPUL.NEB NEB SCH ×3 (04:23→12:31)
[2023-01-30] MEDS: ALBUTEROL HALF STRENGTH 1.25 MG/3 ML VIAL.NEB NEB SCH ×3 (04:23→12:31)
[2023-01-30] MEDS: LISINOPRIL (20MG) 20 MG TABLET PO SCH (09:00)
[2023-01-30] MEDS: POLYETHYLENE GLYCOL 3350 17 GM POWD.PACK PO SCH ×2 (09:00→09:54)
[2023-01-30] MEDS: CHOLECALCIFEROL (VITAMIN D 3) 400 UNIT TABLET PO SCH (09:54)
[2023-01-30] MEDS: PROSOURCE / PROSTAT (PYXIS) 30 ML UDC PO SCH ×2 (09:54→12:12)
[2023-01-30] MEDS: FLUDROCORTISONE 0.1 MG TABLET PO SCH (09:55)
[2023-01-30] MEDS: predniSONE 20 MG TABLET PO SCH (09:55)
[2023-01-30] MEDS: FINASTERIDE (5 MG) 5 MG TABLET PO SCH (09:55)
[2023-01-30] MEDS: DOCUSATE SODIUM 100 MG CAPSULE PO SCH (09:55)
[2023-01-30] MEDS: ASPIRIN 81 MG TAB.CHEW PO SCH (09:55)
[2023-01-30] MEDS: FERROUS SULFATE (325 MG) 325 MG/TAB TABLET PO SCH ×2 (09:55→12:12)
[2023-01-30] MEDS: GABAPENTIN 300 MG CAPSULE PO SCH ×2 (09:55→12:12)
[2023-01-30] MEDS: Z GUARD REMEDY 4 OZ OINT TP SCH (10:00)
[2023-01-30] MEDS ORDERED: PRED20TA PO (10:38)
[2023-01-30] MEDS ORDERED: DOCU100C36 PO (10:38)
[2023-01-30] MEDS ORDERED: LISI20TA30 PO (10:38)
[2023-01-30] MEDS ORDERED: IV D5W 1,000 ML IV ONE (12:30)
[2023-01-31] MEDS ORDERED: predniSONE 20 MG TABLET PO SCH (09:00)
== END 2023-01-30 16:40 | DRG 871 ==
LOC: ER 11:10 → ICU 13:51 → TELE1 01-16 15:16 → MEDSG1 01-27 10:55
PROVIDERS: ADMIT Internal Medicine; ATTEND Internal Medicine
PROC: 5A09357 Assistance with Respiratory Ventilation, Less than 24 Consecutive Hours, Continuous Positive Airway Pressure (ICD-10-PCS; 2023-01-15)
PROC: 05H933Z Insertion of Infusion Device into Right Brachial Vein, Percutaneous Approach (ICD-10-PCS; 2023-01-15)
PROC: 5A09457 Assistance with Respiratory Ventilation, 24-96 Consecutive Hours, Continuous Positive Airway Pressure (ICD-10-PCS; principal; 2023-01-23)
DX: A41.9 Sepsis, unspecified organism (principal); G93.41 Metabolic encephalopathy; J96.22 Acute and chronic respiratory failure with hypercapnia; J96.21 Acute and chronic respiratory failure with hypoxia; J15.6 Pneumonia due to other Gram-negative bacteria; E44.1 Mild protein-calorie malnutrition; N17.9 Acute kidney failure, unspecified; J98.11 Atelectasis; E87.0 Hyperosmolality and hypernatremia; E87.4 Mixed disorder of acid-base balance; Z20.822 Contact with and (suspected) exposure to COVID-19; F03.90 Unspecified dementia, unspecified severity, without behavioral disturbance, psychotic disturbance, mood disturbance, and anxiety; I50.9 Heart failure, unspecified; I11.0 Hypertensive heart disease with heart failure; N40.0 Benign prostatic hyperplasia without lower urinary tract symptoms; Z87.440 Personal history of urinary (tract) infections; I25.2 Old myocardial infarction; G47.30 Sleep apnea, unspecified; G62.9 Polyneuropathy, unspecified; R26.9 Unspecified abnormalities of gait and mobility; R13.10 Dysphagia, unspecified; Z91.013 Allergy to seafood; Z88.8 Allergy status to other drugs, medicaments and biological substances; Z91.018 Allergy to other foods; Z79.51 Long term (current) use of inhaled steroids; Z79.82 Long term (current) use of aspirin; Z79.899 Other long term (current) drug therapy; E88.09 Other disorders of plasma-protein metabolism, not elsewhere classified; D64.9 Anemia, unspecified; Z91.199 Patient's noncompliance with other medical treatment and regimen due to unspecified reason; I07.1 Rheumatic tricuspid insufficiency; I27.20 Pulmonary hypertension, unspecified; Z87.09 Personal history of other diseases of the respiratory system
CPT/HCPCS: 31720; 36410; 36415; 36600; 70450-TC; 70496-TC; 70498-TC; 71045-TC; 74018; 80048-TC; 80053-TC; 80076-TC; 80202-TC; 81001; 82550-TC; 82803-TC; 83605-TC; 83735-TC; 83880; 84100-TC; 84484-TC; 85025-TC; 85027-TC; 85730-TC; 87040-TC; 87086-TC; 92507-TC; 92521; 92526; 92611-TC; 93307-TC; 94660; 94762-TC; 94799-TC; 97110-TC; 97116-TC; 97530-TC; 97535-TC; A4217; A4223; A6253; A6403; G0378; J0456; J0692; J0696; J1650; J1940; J2270; J2405; J2920; J2930; J3370; J7030; J7040; J7050; J7060; J7070; Q9967